=== PATIENT | female | born 1960 | race Caucasian/White ===

== ENCOUNTER 2024-12-25 08:15 | Emergency (ER) | payer SELFPAY ==
[~2024-12-25] VITALS: Ht 165.1 cm; Wt 56.5 kg
--- NOTE | 2024-12-25 08:35 | ED.PDOC ---
GI ASSESSMENT HPI Comments This is a 64 year old female presenting to the ED with chief complaint of nausea/vomiting. Patient reports that since 12am this morning, she started to experience nausea and vomiting with associated headache and palpitations. Patient relays that yesterday she had been swimming in the pool along with having some beers with water to keep herself hydrated throughout the day. Patient states she is not able to hold any fluids down. Patient denies any abdominal pain, chest pain, SOB, diarrhea, fever, or chills. Chief Complaint: Nausea/Vomiting Time Seen by MD: 08:34 Reviewed Notes: Nurses Notes, Medications, Allergies Allergies: Coded Allergies: NO KNOWN ALLERGIES (Unverified , 12/25/24) Home Meds Active Scripts Metronidazole (Flagyl) 500 Mg Tab, 1 TAB PO TID for 5 Days, #15 TAB Prov:OLEG HANEY MD 12/25/24 Ondansetron Odt 4MG Tab (ZOFRAN PO) 4 Mg Tb, 4 MG PO BS for 7 Days, #7 TAB ODT TAB-DISSOLVE IN MOUTH, THEN SWALLOW Prov:OLEG HANEY MD 12/25/24 Information Source: Patient, Spouse Mode of Arrival: Ambulatory Timing: Hours Duration: Since onset Prehospital treatment: None Quality: None Vomitus: Watery Stool: Normal Severity: Moderate Recent: None Recent Hx of: None Pain Location: None Modifying Factors: Nothing Associated sign and symptoms: Nausea, Vomiting Past Medical History PAST MEDICAL HISTORY: AFIB Surgical History: Denies all surgeries ACCOUNTS PAYABLE COORDINATOR History: No Pertinent ACCOUNTS PAYABLE COORDINATOR History Family History Family History: Reviewed,noncontributory to illness Social History Smoker: Non-Smoker Alcohol: Occasionally Drugs: Denies Drug Use Lives In: Home Constitutional: denies: chills, diaphoresis, fatigue, fever, malaise, sweats, weakness, others EENTM: denies: blurred vision, double vision, ear bleeding, ear discharge, ear drainage, ear pain, ear ringing, eye pain, eye redness, hearing loss, mouth pain, mouth swelling, nasal discharge, nose bleeding, nose congestion, nose pain, photophobia, tearing, throat pain, throat swelling, voice changes, others Respiratory: denies: cough, hemoptysis, orthopnea, SOB at rest, shortness of breath, SOB with excertion, stridor, wheezing, others Cardiovascular: reports: palpitations; denies: chest pain, dizzy spells, diaphoresis, Dyspnea on exertion, edema, irregular heart beat, left arm pain, lightheadedness, PND, syncope, others Gastrointestinal: reports: nausea, vomiting; denies: abdomen distended, abdominal pain, blood streaked bowels, constipated, diarrhea, dysphagia, difficu lty swallowing, hematemesis, melena, poor appetite, poor fluid intake, rectal bleeding, rectal pain, others Genitourinary: denies: abnormal vagina bleeding, burning, dyspareunia, dysuria, flank pain, frequency, hematuria, incontinence, pain, , vagina discharge, urgency, others Neurological: reports: headache; denies: dizziness, fainting, left sided numbness, left sided weakness, numbness, paresthesia, pre-existing deficit, right sided numbness, right sided weakness, seizure, speech problems, tingling, tremors, weakness, others Musculoskeletal: denies: back pain, gout, joint pain, joint swelling, muscle pain, muscle stiffness, neck pain, others Integumetry: denies: bruises, change in color, change in hair/nails, dryness, laceration, lesions, lumps, rash, wounds, others Allergic/Immunocompromised: denies: Difficulty Healing, Frequent Infections, Hives, Itching, others Hematologic/Lymphatic: denies: anemia, blood clots, easy bleeding, easy bruising, swollen glands, others Endocrine: denies: excessive hunger, excessive sweating, excessive thirst, excessive urination, flushing, intolerance to cold, intolerance to heat, unexplained weight gain, unexplained weight loss, others Psychiatric: denies: anxiety, bipolar disorder, depression, hopeless, panic disorder, schizophrenia, sleepless, suicidal, others All Other Systems: Reviewed and Negative Physical Exam General Appearance: Moderate Distress, Normal HEENT: Normal ENT Inspection, Pharynx Normal, TMs Normal Neck: Full Range of Motion, Non-Tender, Normal, Normal Inspection Respiratory: Chest Non-Tender, Lungs Clear, No Accessory Muscle Use, No Respiratory Distress, Normal Breath Sounds Cardiovascular: No Edema, No JVD, No Murmur, No Gallop, Normal Peripheral Pulses, Regular Rate/Rhythm Breast Exam: Deferred Gastrointestinal: No Organomegaly, Non Tender, No Pulsatile Mass, Normal Bowel Sounds, Soft Genitalia: Deferred Pelvic: Deferred Rectal: Deferred Extremities: No calf tenderness, Normal capillary refill, Normal inspection, Normal range of motion, Non-tender, No pedal edema Musculoskeletal : Apperance: Normal Neurologic: Alert, mobile equipment mechanic II-XII nml as Tested, No Motor Deficits, Normal Affect, Normal Mood, No Sensory Deficits Cerebellar Function: Normal Reflexes: Normal Skin: Dry, Normal Color, Warm Peripheral Pulses: 3+ Radial (R), 3+ Radial (L) Lymphatic: No Adenopathy EKG EKG : Pulse Rate (adult): 77 Hoagland: Normal Cardiac Rhythm: NSR Block: None Hypertrophy: None ST: Normal Was a procedure done? Was a procedure done?: No GI differential Dx Differential Diagnosis: Constipation, Diverticular disease, Esophagitis, Gastritis/PUD, Gastroenteritis X-Ray, Labs, Meds, VS Vital Signs Date Time Temp Pulse Resp B/P (MAP) Pulse Ox O2 Delivery O2 Flow Rate FiO2 12/25/24 08:55 84 14 98 Room Air* 0 21 12/25/24 08:48 98.7 62 17 125/59 (81) 98 98.7 12/25/24 08:48 62 17 98 Room Air 12/25/24 08:36 77 12/25/24 08:27 77 12/25/24 08:20 97.5 85 18 138/71 (93) 98 97.5 Lab Test 12/25/24 08:44 12/25/24 08:29 Range/Units White Blood Count 9.3 4.4-10.8 10^3/uL Red Blood Count 4.51 4.0-5.20 10^6/uL Hemoglobin 14.1 12.2-16.2 g/dL Hematocrit 41.6 36.0-46.0 % Mean Corpuscular Volume 92.3 80.0-100.0 fL Mean Corpuscular Hemoglobin 31.4 28.0-32.0 pg Mean Corpuscular Hemoglobin Concent 34.0 32.0-36.0 g/dL Red Cell Distribution Width 12.8 11.8-14.3 % Platelet Count 320 140-450 10^3/uL Mean Platelet Volume 7.3 6.9-10.8 fL Neutrophils (%) (Auto) 86.4 H 37.0-80.0 % Lymphocytes (%) (Auto) 10.5 10.0-50.0 % Monocytes (%) (Auto) 2.6 0.0-12.0 % Eosinophils (%) (Auto) 0.1 0.0-7.0 % Basophils (%) (Auto) 0.4 0.0-2.0 % Neutrophils # (Auto) 8.1 1.6-8.6 10 ^3/uL Lymphocytes # (Auto) 1.0 0.4-5.4 10 ^3/uL Monocytes # (Auto) 0.2 0-1.3 10 ^3/uL Eosinophils # (Auto) 0 0-0.8 10 ^3/uL Basophils # (Auto) 0 0-0.2 10 ^3/uL Nucleated Red Blood Cells 0.0 % Sodium Level 128 L 136-145 mmol/L Potassium Level 3.8 3.5-5.1 mmol/L Chloride Level 93 L 98-107 mmol/L Carbon Dioxide Level 26 20-31 mmol/L Anion Gap 9 5-15 Blood Urea Nitrogen 6 L 9-23 mg/dL Creatinine 0.60 0.550-1.02 mg/dL Glomerular Filtration Rate Calc 100 >90 mL/min BUN/Creatinine Ratio 10.0 10.0-20.0 Serum Glucose 108 H 74-106 mg/dL Calcium Level 9.8 8.7-10.4 mg/dL Urine Color Yellow Yellow Urine Clarity Clear Clear Urine pH 6.0 5.0-9.0 Urine Specific [place] 1.018 1.001-1.035 Urine Protein Negative Negative Urine Ketones 3+ H Negative Urine Blood Negative Negative /uL Urine Nitrite Negative Negative Urine Bilirubin Negative Negative Urine Urobilinogen Normal Negative mg/dL Urine Leukocyte Esterase Negative Negative /uL Urine RBC 2 0 - 4 /hpf Urine Microscopic WBC 1 0-5 /HPF Urine Squamous Epithelial Cells None seen <5 /hpf Urine Bacteria None seen None Seen /hpf Urine Mucus Few None Seen Urine Glucose Normal Normal mg/dL Current Medications Medications (Trade) Dose Ordered Sig/Angelita Route Start Time Stop Time Status Last Admin Sodium Chloride 1,000 ml @ 1,000 mls/hr Q1H ONCE IV 12/25/24 08:45 12/25/24 09:44 12/25/24 08:52 Patient alert. Complaining of nausea vomiting. Vitals stable. Answering questions. Abdomen is soft nontender. Establish intravenous access. Was given fluids. Was given Zofran. WBC within normal limits. Possible dehydration. Was given prescription of Flagyl. Explained to the patient. Continue to monitor. Was told to follow up with her primary care physician. Was told to come back if there is any problem. Time of 1ST Reevaluation: 09:33 Reevaluation 1ST: Improved Patient Education/Counseling: Diagnosis, Treatment Family Education/Counseling: Diagnosis, Treatment Additional Information Previous visits reviewed: None The following tests were ordered, and results were reviewed by me: CBC, BMP, UA Additional Information was gathered from interviewing the following independent historians: I reviewed and agreed with the following test results read by other providers: None I discussed treatment and results with medical personnel and: patient and Comprehensive systems review obtained and negative except for what is stated in the HPI. SEPSIS Sepsis Screen Physician Orders Electrocardigram (12/25/24 08:31) Sodium Chloride 0.9% (12/25/24 08:45) Saline Lock (12/25/24 08:39) Vital Signs Date Time Temp Pulse Resp B/P (MAP) Pulse Ox O2 Delivery O2 Flow Rate FiO2 12/25/24 08:55 84 14 98 Room Air* 0 21 12/25/24 08:48 98.7 62 17 125/59 (81) 98 98.7 12/25/24 08:48 62 17 98 Room Air 12/25/24 08:36 77 12/25/24 08:27 77 12/25/24 08:20 97.5 85 18 138/71 (93) 98 97.5 Laboratory Tests Test 12/25/24 08:44 White Blood Count 9.3 10^3/uL (4.4-10.8) Medications Medications Dose Ordered Sig/Angelita Route Start Time Stop Time Status Last Admin Dose Admin Sodium Chloride 1,000 ml @ 1,000 mls/hr Q1H ONCE IV 12/25/24 08:45 12/25/24 09:44 12/25/24 08:52 Departure 1 Departure Time of Disposition: 08:38 Impression: Primary Impression: Gastroenteritis Disposition: 01 HOME / SELF CARE / HOMELESS Condition: Good e-Prescriptions Metronidazole (Flagyl) 500 Mg Tab 1 TAB PO TID for 5 Days, #15 TAB Prov: OLEG HANEY MD 12/25/24 Ondansetron Odt 4MG Tab (ZOFRAN PO) 4 Mg Tb 4 MG PO BS for 7 Days, #7 TAB ODT TAB-DISSOLVE IN MOUTH, THEN SWALLOW Prov: OLEG HANEY MD 12/25/24 Discharged With: Self Critical Care Note Critical Care Time?: No Stability Stability form required: No Heart Score Heart Score: Heart Score Response (Comments) Value History N/A 0 EKG N/A 0 Age N/A 0 Risk Factors N/A 0 Troponin N/A 0 Total 0 I personally scribed for OLEG HANEY MD ([email or web address]) on 12/25/24 at 08:35. Electronically submitted by Jhoan Augustine ([email or web address]). I personally scribed for OLEG HANEY MD ([email or web address]) on 12/25/24 at 08:36. Electronically submitted by Jhoan Augustine ([email or web address]). OLEG HANEY MD Dec 25, 2024 08:35
[2024-12-25] MEDS: SODIUM CHLORIDE 0.9% 1,000 ML IV ONE (08:52)
[2024-12-25 08:55] VITALS: PULSE 84; RESP 14; O2SAT 98
[2024-12-25 08:59] LABS: Urine Protein, UAD Negative (Negative)
[2024-12-25 09:14] LABS: Hematocrit 41.6 % (36.0-46.0); Hemoglobin 14.1 g/dL (12.2-16.2); Mean Corpuscular Hemoglobin 31.4 pg (28.0-32.0); Mean Corpuscular Volume 92.3 fL (80.0-100.0); Nucleated Red Blood Cells % 0.0 %
[2024-12-25 09:18] LABS: Potassium 3.8 mmol/L (3.5-5.1)
[2024-12-25 09:19] LABS: Anion Gap 9 (5-15); Calcium 9.8 mg/dL (8.7-10.4); Carbon Dioxide 26 mmol/L (20-31); Chloride 93 mmol/L (98-107); Sodium 128 mmol/L (136-145)
[2024-12-25 09:24] LABS: BUN/Creatinine Ratio 10.0 (10.0-20.0)
[2024-12-25 09:26] LABS: Blood Urea Nitrogen 6 mg/dL (9-23); Glucose 108 mg/dL (74-106)
[2024-12-25] MEDS ORDERED: METR-344 PO (09:43)
[2024-12-25] MEDS ORDERED: ZOFR4T PO (09:43)
[2024-12-25 10:13] VITALS: BP 116/50; PULSE 82; RESP 16; TEMP 98.9; O2SAT 98
--- NOTE | 2024-12-25 19:09 | ECG ---
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
== END 2024-12-25 10:15 | disposition home or self-care (01) ==
LOC: ER 08:15
DX: K52.9 Noninfective gastroenteritis and colitis, unspecified (principal); I48.91 Unspecified atrial fibrillation; Z79.899 Other long term (current) drug therapy
CPT/HCPCS: 36415; 80048; 81001; 85025; 93005

== ENCOUNTER 2025-01-21 22:02 | Inpatient (IN) | payer SELFPAY ==
[~2025-01-21] VITALS: Ht 162.6 cm; Wt 54.0 kg
[~2025-01-21 22:02] MED LIST: METR-344 PO; ZOFR4T PO
[2025-01-21 23:33] LABS: Hematocrit 41.6 % (36.0-46.0); Hemoglobin 14.3 g/dL (12.2-16.2); Mean Corpuscular Hemoglobin 32.0 pg (28.0-32.0); Mean Corpuscular Volume 93.3 fL (80.0-100.0); Nucleated Red Blood Cells % 0.0 %
[2025-01-21 23:40] LABS: Alanine Aminotransferase 36 U/L (7-40); Albumin 4.4 g/dL (3.2-4.8); Alkaline Phosphatase 56 U/L (46-116); Anion Gap 12 (5-15); Bilirubin, Total 0.4 mg/dL (0.2-1.0); Calcium 8.9 mg/dL (8.7-10.4); Carbon Dioxide 23 mmol/L (20-31); Glucose 104 mg/dL (74-106); Total Protein 6.7 g/dL (5.7-8.2)
[2025-01-21 23:42] LABS: BUN/Creatinine Ratio 7.5 (10.0-20.0); Blood Urea Nitrogen < 5 mg/dL (9-23); Chloride 94 mmol/L (98-107); Lipase 64 U/L (12-53); Potassium 3.4 mmol/L (3.5-5.1); Sodium 129 mmol/L (136-145)
--- NOTE | 2025-01-22 00:01 | ED.PDOC ---
GI ASSESSMENT HPI Comments HPI: 64 year old female presents to the emergency department with a chief complaint of nausea/vomiting onset 1 day. She was seen in this ED on 12/25/2024, for similar symptoms, was diagnosed with Gastroenteritis, was prescribed Flagyl and Zofran. Patient noticed symptoms resolved, for the past day began experiencing symptoms. Describes vomit as a light brown color, is also experiencing weakness. Denies any chest pain,shortness of breath, dizziness, diarrhea, constipation, fever, chills, dysuria, hematuria, hematemesis. No other symptoms or modifying factors present at this time. Initial Vitals BP: 122/89 HR: 76 RR: 20 O2: 97% Temp: 97.8 F Past Medical History: Denies Past Surgical History:Denies Social History: Denies ETOH, smoking, and drug use. Medications: Denies Allergies: NKDA HPI: Poor Historian. REVIEW OF SYSTEMS: CONSTITUTIONAL: Denies acute: fever, diaphoresis, chills, HEAD: Denies acute: headache, photophobia Eyes: Denies acute: Double vision, vision loss, eye pain, eye discharge. EARS: Denies acute: tinnitus, hearing loss, ear discharge, ear pain, THROAT: Denies acute: sore throat, swelling, difficulty swallowing , pain with swallowing, change in voice. NECK: Denies acute: neck pain, neck swelling, stiff neck. HEART: Denies acute : chest pain, palpitations, LUNGS: Denies acute: SOB, wheezing, cough, hemoptysis ABDOMEN: Denies acute: abdominal pain, diarrhea, melena , hematemesis, hematochezia SKIN: Denies acute: rash, redness, lesions, itchiness. EXTREMITIES: Denies acute: calf pain, numbness, tingling, weakness, denies pain in extremity. Denies acute: Low back pain. Neuro: Denies acute: focal neurological deficit, motor or sensory focal neurological deficit, tremors, seizure like activity, confusion, dizziness, change in mental status, loss of bowel or bladder function, cauda equina like symptoms. : Denies acute: dysuria, hematuria, flank pain, increase in urinary frequency. PSYCH: Denies acute: hallucination, suicidal ideation, homicidal ideation. FEMALE: Denies acute: abnormal vaginal bleeding, foul odor, unusual discharge. PHYSICAL EXAM: General: ---mild-----acute distress, awake and alert. Head: normocephalic, atraumatic. Neck: supple, trachea is midline, no swelling. Throat: Normal phonation. Eyes:, no erythema, no purulent discharge, no proptosis, no icterus. Heart: regular rate, regular rhythm, no significant murmur appreciated. Lungs: no apparent respiratory distress, Able to speak in full sentences. No wheezing, no rhonchi, no crackles. No stridors Clear to auscultation bilaterally. Abdomen: non tender to palpation, non distended, soft, no guarding, no rebound, + bowel sounds. Neuro: Awake, Alert, oriented to name, self, situation, follows commands GCS=15. Speech is normal. Skin: no petechia, no purpura, no cyanosis, non-pale, not jaundice. Lower extremities: --no - Pitting edema no deformity, no focal swelling, no calf TTP. Makes eye contact. moves all four extremities. Face: no apparent facial droop. Ambulating in the ED independently. ED COURSE: DISCLAIMER: This medical document was created using an electronic medical record system with voice recognition software and computerized dictation system. Although this document has been carefully reviewed, there might still be some phonetic and typographical errors. Occasional wrong-word or "sound-alike" substitutions may have occurred due to the inherent limitations of voice recognition software. These areas are purely typographical due to imperfections of the software programs and do not reflect any compromise in the patient's medical care. Please read the chart carefully and recognize, using context, where these substitutions have occurred. Chief Complaint: Nausea/Vomiting Time Seen by MD: 23:50 Primary Care Provider: ? Reviewed Notes: Medications, Allergies Allergies: Coded Allergies: NO KNOWN ALLERGIES (Unverified , 12/25/24) Home Meds Active Scripts Metronidazole (Flagyl) 500 Mg Tab, 1 TAB PO TID for 5 Days, #15 TAB Prov:OLEG HANEY MD 12/25/24 Ondansetron Odt 4MG Tab (ZOFRAN PO) 4 Mg Tb, 4 MG PO BS for 7 Days, #7 TAB ODT TAB-DISSOLVE IN MOUTH, THEN SWALLOW Prov:OLEG HANEY MD 12/25/24 Information Source: Patient Mode of Arrival: Ambulatory Timing: Days Duration: Since onset Prehospital treatment: None Quality: None Vomitus: Other (light brown) Severity: Moderate Recent: None Recent Hx of: None Modifying Factors: Nothing Associated sign and symptoms: Nausea, Vomiting Past Medical History PAST MEDICAL HISTORY: Denies Surgical History: Denies all surgeries COSMETICS COUNTER MANAGER History: No Pertinent COSMETICS COUNTER MANAGER History Family History Family History: Reviewed,noncontributory to illness Social History Smoker: Non-Smoker Alcohol: Occasionally Drugs: Denies Drug Use Lives In: Home Was a procedure done? Was a procedure done?: No X-Ray, Labs, Meds, VS Vital Signs Date Time Temp Pulse Resp B/P (MAP) Pulse Ox O2 Delivery O2 Flow Rate FiO2 01/21/25 22:12 74 01/21/25 22:03 97.8 76 20 122/89 97 97.8 Lab Test 01/21/25 23:45 01/21/25 22:53 01/21/25 22:15 Range/Units Troponin I High Sensitivity < 3 L < 3 L </=34 ng/L White Blood Count 15.4 H 4.4-10.8 10^3/uL Red Blood Count 4.46 4.0-5.20 10^6/uL Hemoglobin 14.3 12.2-16.2 g/dL Hematocrit 41.6 36.0-46.0 % Mean Corpuscular Volume 93.3 80.0-100.0 fL Mean Corpuscular Hemoglobin 32.0 28.0-32.0 pg Mean Corpuscular Hemoglobin Concent 34.3 32.0-36.0 g/dL Red Cell Distribution Width 12.4 11.8-14.3 % Platelet Count 263 140-450 10^3/uL Mean Platelet Volume 7.3 6.9-10.8 fL Neutrophils (%) (Auto) 83.1 H 37.0-80.0 % Lymphocytes (%) (Auto) 12.8 10.0-50.0 % Monocytes (%) (Auto) 3.6 0.0-12.0 % Eosinophils (%) (Auto) 0.3 0.0-7.0 % Basophils (%) (Auto) 0.2 0.0-2.0 % Neutrophils # (Auto) 12.8 H 1.6-8.6 10 ^3/uL Lymphocytes # (Auto) 2.0 0.4-5.4 10 ^3/uL Monocytes # (Auto) 0.6 0-1.3 10 ^3/uL Eosinophils # (Auto) 0 0-0.8 10 ^3/uL Basophils # (Auto) 0 0-0.2 10 ^3/uL Nucleated Red Blood Cells 0.0 % Sodium Level 129 L 136-145 mmol/L Potassium Level 3.4 L 3.5-5.1 mmol/L Chloride Level 94 L 98-107 mmol/L Carbon Dioxide Level 23 20-31 mmol/L Anion Gap 12 5-15 Blood Urea Nitrogen < 5 L 9-23 mg/dL Creatinine 0.67 0.550-1.02 mg/dL Glomerular Filtration Rate Calc 98 >90 mL/min BUN/Creatinine Ratio 7.5 L 10.0-20.0 Serum Glucose 104 74-106 mg/dL Lactic Acid Level 1.6 0.4-2.0 mmol/L Calcium Level 8.9 8.7-10.4 mg/dL Total Bilirubin 0.4 0.2-1.0 mg/dL Aspartate Amino Transferase (AST) 35 13-40 U/L Alanine Aminotransferase (ALT) 36 7-40 U/L Alkaline Phosphatase 56 46-116 U/L Total Protein 6.7 5.7-8.2 g/dL Albumin 4.4 3.2-4.8 g/dL Lipase 64 H 12-53 U/L POC Glucose 113 H 70-106 mg/dl Current Medications Medications (Trade) Dose Ordered Sig/Angelita Route Start Time Stop Time Status Last Admin Sodium Chloride 1,000 ml @ 1,000 mls/hr Q1H ONCE IV 01/22/25 00:00 01/22/25 00:59 01/22/25 00:43 Ondansetron HCl (Zofran) 8 mg ONCE ONCE IV 01/22/25 00:00 01/22/25 00:01 DC 01/22/25 00:[address] [address] Ph: [phone] DIAGNOSTIC IMAGING Diagnostic Imaging Report : [id number] Signed PATIENT: BEBETO RDZ ACCT: [id number] UNIT: [id number] : 1960 LOC: ER ROOM / BED: / AGE / SEX: 64 / F ADM STATUS: REG ER SERVICE 21 ORDERING PHYSICIAN: MONICA OTOOLE DO PROCEDURE(s): ABPLIV - CT AB PEL WITH IV CON ONLY REASON: abd pain n/v ORDER NUMBER(s): [id number], ACCESSION NUMBER(s): [id number] Exam: CT CT AB PEL WITH IV CON ONLY History: abd pain n/v Comparison Study: None TECHNIQUE: A digital public relations intern image was obtained. During the uneventful, intravenous administration of contrast material, multislice data acquisition was obtained through the abdomen and pelvis. The data set was subsequently reconstructed into multiplanar reformats. RADIATION DOSE: CTDI vol 7.81 mGy. DLP 419.68 mGy.cm Findings: Liver: Unremarkable. Spleen: Unremarkable. Pancreas: Unremarkable. Gallbladder: Unremarkable. Adrenals: Unremarkable Kidneys: Unremarkable. Pelvic Viscera: Unremarkable. Vasculature: Unremarkable. Retroperitoneum: Unremarkable. Bowel: No bowel obstruction. Fluid-filled small bowel with regions of small bowel wall thickening. No CT evidence of appendicitis. Musculoskeletal: Unremarkable. Soft tissues: Unremarkable Lungs: The lung bases are clear. Impression: 1. Findings as above raising the possibility of an enteritis in the appropriate clinical setting. ATED BY: KAMLESH CHEN MD DICTATED DATE/TIME: 01/22/25 0004 SIGNED BY: KAMLESH CHEN MD SIGNED DATE/TIME: 01/22/25 0004 CC: Time of 1ST Reevaluation: 00:20 Reevaluation 1ST: Unchanged Patient Education/Counseling: Diagnosis, Treatment Family Education/Counseling: No Family Present Departure 1 Departure Impression: Primary Impression: Enteritis Additional Impressions: Leukocytosis Qualified Codes: D72.829 - Elevated white blood cell count, unspecified Nausea & vomiting Qualified Codes: R11.2 - Nausea with vomiting, unspecified Hyponatremia Disposition: ADMITTED INPATIENT Admit to: [facility] Condition: Guarded Additional Instructions: [place] [address] Ph: [phone] DIAGNOSTIC IMAGING Diagnostic Imaging Report : [id number] Signed PATIENT: BEBETO RDZ ACCT: [id number] UNIT: [id number] : 1960 LOC: ER ROOM / BED: / AGE / SEX: 64 / F ADM STATUS: REG ER SERVICE 21 ORDERING PHYSICIAN: MONICA OTOOLE DO PROCEDURE(s): ABPLIV - CT AB PEL WITH IV CON ONLY REASON: abd pain n/v ORDER NUMBER(s): [id number], ACCESSION NUMBER(s): [id number] Exam: CT CT AB PEL WITH IV CON ONLY History: abd pain n/v Comparison Study: None TECHNIQUE: A digital public relations intern image was obtained. During the uneventful, intravenous administration of contrast material, multislice data acquisition was obtained through the abdomen and pelvis. The data set was subsequently reconstructed into multiplanar reformats. RADIATION DOSE: CTDI vol 7.81 mGy. DLP 419.68 mGy.cm Findings: Liver: Unremarkable. Spleen: Unremarkable. Pancreas: Unremarkable. Gallbladder: Unremarkable. Adrenals: Unremarkable Kidneys: Unremarkable. Pelvic Viscera: Unremarkable. Vasculature: Unremarkable. Retroperitoneum: Unremarkable. Bowel: No bowel obstruction. Fluid-filled small bowel with regions of small bowel wall thickening. No CT evidence of appendicitis. Musculoskeletal: Unremarkable. Soft tissues: Unremarkable Lungs: The lung bases are clear. Impression: 1. Findings as above raising the possibility of an enteritis in the appropriate clinical setting. ATED BY: KAMLESH CHEN MD DICTATED DATE/TIME: 01/22/25 0004 SIGNED BY: KAMLESH CHEN MD SIGNED DATE/TIME: 01/22/25 0004 CC: Discharged With: Self Critical Care Note Critical Care Time?: No I personally scribed for MONICA OTOOLE DO ([email or web address]) on 01/22/25 at 00:01. E lectronically submitted by Sugey Reddy ([email or web address]). I personally scribed for MONICA OTOOLE DO ([email or web address]) on 01/22/25 at 00:19. Electr onically submitted by Sugey Reddy ([email or web address]). I personally scribed for MONICA OTOOLE DO ([email or web address]) on 01/22/25 at 00:50. Electronically submitted by Sugey Reddy ([email or web address]). MONICA OTOOLE DO Jan 22, 2025 00:01
--- NOTE | 2025-01-22 00:07 | DVH ---
Exam: CT CT AB PEL WITH IV CON ONLY History: abd pain n/v Comparison Study: None TECHNIQUE: A digital wet cleaner machine image was obtained. During the uneventful, intravenous administration of c ontrast material, multislice data acquisition was obtained through the abdomen and pelvis. The data s et was subsequently reconstructed into multiplanar reformats. RADIATION DOSE: CTDI vol 7.81 mGy. DLP 419.68 mGy.cm Findings: Liver: Unremarkable. Spleen: Unremarkable. Pancreas: Unremarkable. Gallbladder: Unremarkable. Adrenals: Unremarkable Kidneys: Unremarkable. Pelvic Viscera: Unremarkable. Vasculature: Unremarkable. Retroperitoneum: Unremarkable. Bowel: No bowel obstruction. Fluid-filled small bowel with regions of small bowel wall thickening. No CT evidence of appendicitis. Musculoskeletal: Unremarkable. Soft tissues: Unremarkable Lungs: The lung bases are clear. Impression: 1. Findings as above raising the possibility of an enteritis in the appropriate clinical setting.
[2025-01-22] MEDS: IOHEXOL 300 MG/ML 100ML BOTTLE IJ ONE (00:32)
[2025-01-22] MEDS: SODIUM CHLORIDE 0.9% 1,000 ML IV ONE (00:43)
[2025-01-22] MEDS: ONDANSETRON HCL 4 MG/2 ML VIAL IV ONE (00:44)
[2025-01-22] MEDS ORDERED: ONDANSETRON HCL 4 MG/2 ML VIAL IV PRN (01:15)
[2025-01-22] MEDS ORDERED: HYDROcodone-ACET 5/325MG TAB PO PRN (01:15)
[2025-01-22] MEDS ORDERED: MORPHINE SULFATE INJ 2 MG/ml SYRG IV PRN (01:15)
[2025-01-22] MEDS ORDERED: ACETAMINOPHEN 325 MG TAB PO PRN (01:15)
[2025-01-22] MEDS: SODIUM CHLORIDE 0.9% 500 ML IV ONE (03:04)
--- NOTE | 2025-01-22 03:08 | DVHHP2 ---
History of Present Illness Reason for Visit: Nausea and vomiting History of Present Illness 64-year-old female presents for evaluation of nausea and vomiting. Patient reports a one day history of abdominal cramping with associated nausea and vomiting. She reports a history of gastroenteritis in the past. She states the symptoms feel similar. Denies diarrhea. No fever or chills. Past Medical History Denies Past Surgical History Denies Family History Noncontributory Smoke: No ALCOHOL: none Drugs: None Lives: with Family Review of Systems Review of Systems Review of systems are currently negative otherwise addressed in HPI. Allergies: Coded Allergies: NO KNOWN ALLERGIES (Unverified , 12/25/24) Medications Current Medications Medications Dose Ordered Sig/Angelita Route Start Time Stop Time Status Last Admin Dose Admin Metronidazole 100 ml @ 100 mls/hr Q8HR IV 01/22/25 14:00 Pantoprazole Sodium 40 mg DAILY IV 01/22/25 10:00 Acetaminophen/ Hydrocodone Bitart 1 tab Q4HP PRN PO 01/22/25 01:15 Ondansetron HCl 4 mg Q4HP PRN IV 01/22/25 01:15 Acetaminophen 650 mg Q6HP PRN PO 01/22/25 01:15 Morphine Sulfate 2 mg Q6HPRN PRN IV 01/22/25 01:15 Exam Vital Signs Vital Signs Date Time Temp Pulse Resp B/P (MAP) Pulse Ox O2 Delivery O2 Flow Rate FiO2 01/22/25 01:16 98.6 89 16 125/48 (73) 98 98.6 Exam Gen: 64-year-old female in mild distress Skin: Warm, dry, normal color and texture, no rash. HEENT: Normocephalic atraumatic, mucous membranes moist and pink. Neck: Cervical and supraclavicular nodes normal without enlargement, trachea is midline, thyroid gland is normal without masses. Pulmonary: Clear to auscultation and percussion bilaterally. Cardiac: Regular rate and rhythm. No murmur Abdomen: Soft, nontender, nondistended, bowel sounds present all 4 quadrants, no guarding, no rigidity, no organomegaly. Extremities: No cyanosis, clubbing, no edema Neuro: Cranial nerves II through XII grossly intact, normal affect and speech, no focal motor deficits. Labs/Xrays ORDERING PHYSICIAN: MONICA OTOOLE DO PROCEDURE(s): ABPLIV - CT AB PEL WITH IV CON ONLY REASON: abd pain n/v ORDER NUMBER(s): [id number], ACCESSION NUMBER(s): [id number] Exam: CT CT AB PEL WITH IV CON ONLY History: abd pain n/v Comparison Study: None TECHNIQUE: A digital battery charger tester image was obtained. During the uneventful, intravenous administration of contrast material, multislice data acquisition was obtained through the abdomen and pelvis. The data set was subsequently reconstructed into multiplanar reformats. RADIATION DOSE: CTDI vol 7.81 mGy. DLP 419.68 mGy.cm Findings: Liver: Unremarkable. Spleen: Unremarkable. Pancreas: Unremarkable. Gallbladder: Unremarkable. Adrenals: Unremarkable Kidneys: Unremarkable. Pelvic Viscera: Unremarkable. Vasculature: Unremarkable. Retroperitoneum: Unremarkable. Bowel: No bowel obstruction. Fluid-filled small bowel with regions of small bowel wall thickening. No CT evidence of appendicitis. Musculoskeletal: Unremarkable. Soft tissues: Unremarkable Lungs: The lung bases are clear. Impression: 1. Findings as above raising the possibility of an enteritis in the appropriate clinical setting. Labs Test 01/22/25 01:34 01/21/25 22:53 01/21/25 22:15 Range/Units Troponin I High Sensitivity < 3 L </=34 ng/L White Blood Count 15.4 H 4.4-10.8 10^3/uL Red Blood Count 4.46 4.0-5.20 10^6/uL Hemoglobin 14.3 12.2-16.2 g/dL Hematocrit 41.6 36.0-46.0 % Mean Corpuscular Volume 93.3 80.0-100.0 fL Mean Corpuscular Hemoglobin 32.0 28.0-32.0 pg Mean Corpuscular Hemoglobin Concent 34.3 32.0-36.0 g/dL Red Cell Distribution Width 12.4 11.8-14.3 % Platelet Count 263 140-450 10^3/uL Mean Platelet Volume 7.3 6.9-10.8 fL Neutrophils (%) (Auto) 83.1 H 37.0-80.0 % Lymphocytes (%) (Auto) 12.8 10.0-50.0 % Monocytes (%) (Auto) 3.6 0.0-12.0 % Eosinophils (%) (Auto) 0.3 0.0-7.0 % Basophils (%) (Auto) 0.2 0.0-2.0 % Neutrophils # (Auto) 12.8 H 1.6-8.6 10 ^3/uL Lymphocytes # (Auto) 2.0 0.4-5.4 10 ^3/uL Monocytes # (Auto) 0.6 0-1.3 10 ^3/uL Eosinophils # (Auto) 0 0-0.8 10 ^3/uL Basophils # (Auto) 0 0-0.2 10 ^3/uL Nucleated Red Blood Cells 0.0 % Sodium Level 129 L 136-145 mmol/L Potassium Level 3.4 L 3.5-5.1 mmol/L Chloride Level 94 L 98-107 mmol/L Carbon Dioxide Level 23 20-31 mmol/L Anion Gap 12 5-15 Blood Urea Nitrogen < 5 L 9-23 mg/dL Creatinine 0.67 0.550-1.02 mg/dL Glomerular Filtration Rate Calc 98 >90 mL/min BUN/Creatinine Ratio 7.5 L 10.0-20.0 Serum Glucose 104 74-106 mg/dL Lactic Acid Level 1.6 0.4-2.0 mmol/L Calcium Level 8.9 8.7-10.4 mg/dL Total Bilirubin 0.4 0.2-1.0 mg/dL Aspartate Amino Transferase (AST) 35 13-40 U/L Alanine Aminotransferase (ALT) 36 7-40 U/L Alkaline Phosphatase 56 46-116 U/L Total Protein 6.7 5.7-8.2 g/dL Albumin 4.4 3.2-4.8 g/dL Lipase 64 H 12-53 U/L POC Glucose 113 H 70-106 mg/dl SEPSIS Sepsis Screen Date sepsis recognized/suspect: Jan 21, 2025 Time Sepsis recognized/suspect: 2202 Recent Procedure: No On Antibiotic Therapy: No Respiratory Rate >20: No Heart Rate >90: No Temp<36 C (96.8 F) or >38.3 C: No SBP <90 or MAP <65 mmHG: No New Acute Mental Status Change: No Is the patient on CPAP, BIPAP,: No Physician Orders Electrocardigram (01/21/25 22:20) Shorts Sifter (01/21/25 ) Urinalysis (01/21/25 22:22) Ct Ab Pel With Iv Con Only (01/21/25 22:22) Metronidazole 500mg/100ml (Flagyl 500mg/ (01/22/25 14:00) * [facility] (01/22/25 01:12) Pantoprazole (Protonix) (01/22/25 10:00) Basic Metabolic Panel (01/23/25 04:00) Admit (01/22/25 01:12) Hydrocodone-Acet 5/325mg Tab (Lyman 5/32 (01/22/25 01:15) Ondansetron Hcl (Zofran) (01/22/25 01:15) Complete Blood Count (01/23/25 04:00) Condition: Stable (01/22/25 01:12) Acetaminophen Tablet (Tylenol Tablet) (01/22/25 01:15) Clear Liq Diet (01/22/25 Breakfast) Bedrest With Bathroom Privileg (01/22/25 01:12) Morphine Sulfate Injection (01/22/25 01:15) Vital Signs Date Time Temp Pulse Resp B/P (MAP) Pulse Ox O2 Delivery O2 Flow Rate FiO2 01/22/25 01:16 98.6 89 16 125/48 (73) 98 98.6 01/21/25 22:12 74 01/21/25 22:03 97.8 76 20 122/89 97 97.8 Laboratory Tests Test 01/21/25 22:53 Lactic Acid Level 1.6 mmol/L (0.4-2.0) White Blood Count 15.4 10^3/uL (4.4-10.8) H Medications Medications Dose Ordered Sig/Angelita Route Start Time Stop Time Status Last Admin Dose Admin Ondansetron HCl 8 mg ONCE ONCE IV 01/22/25 00:00 01/22/25 00:01 DC 01/22/25 00:44 8 MG Sodium Chloride 1,000 ml @ 1,000 mls/hr Q1H ONCE IV 01/22/25 00:00 01/22/25 00:59 DC 01/22/25 00:43 1,000 MLS/HR Assessment/Plan Assessment/Plan Assessment Acute gastroenteritis Hypokalemia Leukocytosis Plan Admit the patient to [facility] to the hospitalist Flagyl IV Clear liquid diet Pain management GI consult Continue treatment per orders. Plan discussed with: Patient My Orders Orders - NILES JOE Procedure Category Date Status Time Metronidazole PHA 01/22/25 In Process 500mg/100ml (Flagyl 14:00 * [facility] CONS 01/22/25 Transmitted 01:12 Pantoprazole PHA 01/22/25 In Process (Protonix) 10:00 Basic Metabolic Panel LAB 01/23/25 Verified 04:00 Admit ADMIT 01/22/25 Transmitted 01:12 Hydrocodone-Acet PHA 01/22/25 In Process 5/325mg Tab (Lyman 01:15 Ondansetron Hcl PHA 01/22/25 In Process (Zofran) 01:15 Complete Blood Count LAB 01/23/25 Verified 04:00 Condition: Stable DANA 01/22/25 In Process 01:12 Acetaminophen Tablet PHA 01/22/25 In Process (Tylenol Tablet) 01:15 Clear Liq Diet DIET 01/22/25 Transmitted Breakfast Bedrest With Bathroom DANA 01/22/25 In Process Privileg 01:12 Morphine Sulfate PHA 01/22/25 In Process Injection 01:15 Date of Service: Jan 22, 2025 Billing Provider: NILES JEO Common Visit Codes: [id number] INP/OBS CARE (MOD) NILES JOE Jan 22, 2025 03:08
[2025-01-22] MEDS: METOCLOPRAMIDE HCL 5MG/ml INJ 2ml VIAL IV ONE (04:10)
[2025-01-22] MEDS: CIPROFLOXACIN 400MG/200ML 200 ML IV ONE (04:10)
[2025-01-22] MEDS: POTASSIUM CHL 20 Meq TABLET PO ONE (04:51)
[2025-01-22 04:52] LABS: Urine Protein, UAD Negative (Negative)
[2025-01-22 05:00] VITALS: PULSE 90; RESP 14; O2SAT 96
[2025-01-22] MEDS: diphenhdrAMINE HCL 50 MG/1 ML VL ONE (05:22)
[2025-01-22] MEDS: diphenhdrAMINE HCL 50 MG/1 ML VL IV ONE (05:23)
[2025-01-22 07:30] VITALS: PULSE 83; RESP 12; O2SAT 97
--- NOTE | 2025-01-22 09:11 | ECG ---
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
[2025-01-22] MEDS: PANTOPRAZOLE 40 MG/10 ML VIAL INJ IV SCH (10:57)
--- NOTE | 2025-01-22 13:40 | DVHINCON2 ---
GI Consult Consult Note GI consult note Date of Consultation: 01/22/2025 Chief Complaint: Gastroenteritis Referring Physician: Rufus BURDICK H&P: 64-year-old female is seen in the ER bed 24 for evaluation of nausea and vomiting. Patient complains of mild upper and periumbilical pain. Patient has nausea and vomiting, mostly water. That she has been drinking that she is throwing up. Patient has fatigue and decreased appetite for the past many weeks, in admits to having lot of family stress. Patient was admitted to the hospital with similar symptoms about five weeks, completed course of antibiotics. Last bowel movement 1 hour. Denies melena or red blood in stool. Patient is starting to feel better and prefers to follow-up with us on an outpatient basis Past Medical History: Denies Past Surgical History: Denies Social History: NO smoking, drinking ETOH and use of illegal drugs. Family History: Noncontributory Review of Systems: Constitutional: no fever, chill, weight loss HEENT: no eye pain, no hearing loss, no oral lesion, no scleral icterus Heart: no chest pain, no chest pressure Lung: no cough, no dyspnea with exertion Abdomen: see HPI Physical exam: General: NAD, AAOX3 Chest: lung irizarry clear to auscultation Heart: RRR, no murmur Abdomen: non-distended, no tenderness to palpation, +BS Labs: Labs Test 01/22/25 02:23 01/22/25 01:34 01/21/25 22:53 01/21/25 22:15 Range/Units Urine Color Light-yellow Yellow Urine Clarity Turbid H Clear Urine pH 6.0 5.0-9.0 Urine Specific [place] 1.022 1.001-1.035 Urine Protein Negative Negative Urine Ketones 1+ H Negative Urine Blood Negative Negative /uL Urine Nitrite Negative Negative Urine Bilirubin Negative Negative Urine Urobilinogen Normal Negative mg/dL Urine Leukocyte Esterase Negative Negative /uL Urine RBC None seen 0 - 4 /hpf Urine Microscopic WBC 1 0-5 /HPF Urine Squamous Epithelial Cells None seen <5 /hpf Urine Calcium Oxalate Crystals Many None Seen Urine Bacteria None seen None Seen /hpf Urine Mucus Few None Seen Urine Glucose Normal Normal mg/dL Troponin I High Sensitivity < 3 L </=34 ng/L White Blood Count 15.4 H 4.4-10.8 10^3/uL Red Blood Count 4.46 4.0-5.20 10^6/uL Hemoglobin 14.3 12.2-16.2 g/dL Hematocrit 41.6 36.0-46.0 % Mean Corpuscular Volume 93.3 80.0-100.0 fL Mean Corpuscular Hemoglobin 32.0 28.0-32.0 pg Mean Corpuscular Hemoglobin Concent 34.3 32.0-36.0 g/dL Red Cell Distribution Width 12.4 11.8-14.3 % Platelet Count 263 140-450 10^3/uL Mean Platelet Volume 7.3 6.9-10.8 fL Neutrophils (%) (Auto) 83.1 H 37.0-80.0 % Lymphocytes (%) (Auto) 12.8 10.0-50.0 % Monocytes (%) (Auto) 3.6 0.0-12.0 % Eosinophils (%) (Auto) 0.3 0.0-7.0 % Basophils (%) (Auto) 0.2 0.0-2.0 % Neutrophils # (Auto) 12.8 H 1.6-8.6 10 ^3/uL Lymphocytes # (Auto) 2.0 0.4-5.4 10 ^3/uL Monocytes # (Auto) 0.6 0-1.3 10 ^3/uL Eosinophils # (Auto) 0 0-0.8 10 ^3/uL Basophils # (Auto) 0 0-0.2 10 ^3/uL Nucleated Red Blood Cells 0.0 % Sodium Level 129 L 136-145 mmol/L Potassium Level 3.4 L 3.5-5.1 mmol/L Chloride Level 94 L 98-107 mmol/L Carbon Dioxide Level 23 20-31 mmol/L Anion Gap 12 5-15 Blood Urea Nitrogen < 5 L 9-23 mg/dL Creatinine 0.67 0.550-1.02 mg/dL Glomerular Filtration Rate Calc 98 >90 mL/min BUN/Creatinine Ratio 7.5 L 10.0-20.0 Serum Glucose 104 74-106 mg/dL Lactic Acid Level 1.6 0.4-2.0 mmol/L Calcium Level 8.9 8.7-10.4 mg/dL Total Bilirubin 0.4 0.2-1.0 mg/dL Aspartate Amino Transferase (AST) 35 13-40 U/L Alanine Aminotransferase (ALT) 36 7-40 U/L Alkaline Phosphatase 56 46-116 U/L Total Protein 6.7 5.7-8.2 g/dL Albumin 4.4 3.2-4.8 g/dL Lipase 64 H 12-53 U/L POC Glucose 113 H 70-106 mg/dl Imaging: CT abdomen pelvis Impression: 1. Findings as above raising the possibility of an enteritis in the appropriate clinical setting. Assessment: Gastroenteritis Abdominal pain Nausea and vomiting Plan: Discussed with Dr. Tanner - Pt will be scheduled for an EGD tomorrow 01/23/2025. Pt was informed of the risks (bleeding, infection, perforation, reaction to sedation medications and cardiopulmonary arrest) and benefit and is agreeable to undergo the procedures. At this time patient does not want to do any procedures. And would like to be discharged home since she is feeling better Clear liquid diet advance as tolerated Zofran and Protonix Continue antibiotic Outpatient GI follow-up recommended in 2-4 weeks Recall GI consult if patient's symptoms worsen Discussed plan with patient and RN and family at bedside Thank you for this consult Date of Service: Jan 22, 2025 Billing Provider: AVEL JENKINS Common Visit Codes: CONSULT ONLY Consultation Codes: [id number] CONSULT <60MIN AVEL JENKINS Jan 22, 2025 13:40
[2025-01-22] MEDS ORDERED: LACTATED RINGER'S 1,000 ML IV SCH (14:45)
[2025-01-22] MEDS ORDERED: PANT40TA2 PO (15:19)
[2025-01-22] MEDS ORDERED: CIPR500T4 PO (15:19)
[2025-01-22] MEDS ORDERED: MAA30LQ PO (15:19)
--- NOTE | 2025-01-22 15:22 | DVHDS2 ---
Discharge Summary Date of Admission Jan 22, 2025 at 01:12 Date of Discharge: Jan 22, 2025 Labs/Diagnostic Data: Laboratory Results Test 01/22/25 02:23 01/22/25 01:34 01/21/25 22:53 01/21/25 22:15 Urine Color Light-yellow (Yellow) Urine Clarity Turbid (Clear) Urine pH 6.0 (5.0-9.0) Urine Specific [place] 1.022 (1.001-1.035) Urine Protein Negative (Negative) Urine Ketones 1+ (Negative) Urine Blood Negative /uL (Negative) Urine Nitrite Negative (Negative) Urine Bilirubin Negative (Negative) Urine Urobilinogen Normal mg/dL (Negative) Urine Leukocyte Esterase Negative /uL (Negative) Urine RBC None seen /hpf (0 - 4) Urine Microscopic WBC 1 /HPF (0-5) Urine Squamous Epithelial Cells None seen /hpf (<5) Urine Calcium Oxalate Crystals Many (None Seen) Urine Bacteria None seen /hpf (None Seen) Urine Mucus Few (None Seen) Urine Glucose Normal mg/dL (Normal) Troponin I High Sensitivity < 3 ng/L (</=34) White Blood Count 15.4 10^3/uL (4.4-10.8) Red Blood Count 4.46 10^6/uL (4.0-5.20) Hemoglobin 14.3 g/dL (12.2-16.2) Hematocrit 41.6 % (36.0-46.0) Mean Corpuscular Volume 93.3 fL (80.0-100.0) Mean Corpuscular Hemoglobin 32.0 pg (28.0-32.0) Mean Corpuscular Hemoglobin Concent 34.3 g/dL (32.0-36.0) Red Cell Distribution Width 12.4 % (11.8-14.3) Platelet Count 263 10^3/uL (140-450) Mean Platelet Volume 7.3 fL (6.9-10.8) Neutrophils (%) (Auto) 83.1 % (37.0-80.0) Lymphocytes (%) (Auto) 12.8 % (10.0-50.0) Monocytes (%) (Auto) 3.6 % (0.0-12.0) Eosinophils (%) (Auto) 0.3 % (0.0-7.0) Basophils (%) (Auto) 0.2 % (0.0-2.0) Neutrophils # (Auto) 12.8 10 ^3/uL (1.6-8.6) Lymphocytes # (Auto) 2.0 10 ^3/uL (0.4-5.4) Monocytes # (Auto) 0.6 10 ^3/uL (0-1.3) Eosinophils # (Auto) 0 10 ^3/uL (0-0.8) Basophils # (Auto) 0 10 ^3/uL (0-0.2) Nucleated Red Blood Cells 0.0 % Sodium Level 129 mmol/L (136-145) Potassium Level 3.4 mmol/L (3.5-5.1) Chloride Level 94 mmol/L (98-107) Carbon Dioxide Level 23 mmol/L (20-31) Anion Gap 12 (5-15) Blood Urea Nitrogen < 5 mg/dL (9-23) Creatinine 0.67 mg/dL (0.550-1.02) Glomerular Filtration Rate Calc 98 mL/min (>90) BUN/Creatinine Ratio 7.5 (10.0-20.0) Serum Glucose 104 mg/dL (74-106) Lactic Acid Level 1.6 mmol/L (0.4-2.0) Calcium Level 8.9 mg/dL (8.7-10.4) Total Bilirubin 0.4 mg/dL (0.2-1.0) Aspartate Amino Transferase (AST) 35 U/L (13-40) Alanine Aminotransferase (ALT) 36 U/L (7-40) Alkaline Phosphatase 56 U/L (46-116) Total Protein 6.7 g/dL (5.7-8.2) Albumin 4.4 g/dL (3.2-4.8) Lipase 64 U/L (12-53) POC Glucose 113 mg/dl (70-106) Other Laboratory Tests 01/21/25 22:53 Brief Hx & Hospital Course: 64 F presented with vomiting and abdominal pain, not first episode. no allergy confirmed (cipro w/o reaction however was given flagyl and has some uncomfortable reaction before, no anaphylaxis, rash). seen by GI. ct with enteritis. abdomen soft. oferred scope, aptient defer. f/u w gi outpatinet. dc with protonix cipro and maalox. feeling better. stable to dc home Condition at Discharge: Good Final Diagnosis/Problems List dyspepsia w vomiting Discharge Disposition: Home Discharge Instruct/Medications Diet: See Comment Diet comment: small frequent feeding, avoid spicy foods, avoid caffeine, avoid alcohol Activity: No Restrictions, As Tolerated Follow Up/Referral: GI PCP nd clinic Medications: cipro (no allergy per pt) maalox protonix Scheduled Ciprofloxacin Hcl (Ciprofloxacin Hcl), 1 TAB PO BID Metronidazole (Flagyl), 1 TAB PO TID Ondansetron Odt 4MG Tab (Zofran Po), 4 MG PO BS Pantoprazole Sodium Sesquihydr (Protonix), 40 MG PO BID Scheduled PRN Alum & Mag Hydrox-Simethicone (Maalox Plus), 30 ML PO Q6HP PRN Discharge Statement: "Patient was advised to return to the ER or call 911 if any headaches, dizziness, shortness of breath, chest pain, abdominal pain, bleeding, fevers, or worsening of medical condition. Patient was counseled about treatment plan, medications, possible side effects, patientverbalized understanding. All questions were answered to the best of my ability. This discharge took greater then 30 minutes in planning, reviewing documentation, counseling the patient, and discussing with other team members." ASSESSMENT ASSESSMENT Assessment dyspepsia w vomiting Date of Service: Jan 22, 2025 Billing Provider: NALINI ARRINGTON MD Common Visit Codes: [id number] DISCH DAY >30min NALINI ARRINGTON MD Jan 22, 2025 15:22
[2025-01-22 16:00] VITALS: BP 150/77; PULSE 92; RESP 18; TEMP 97; O2SAT 97
[2025-01-22] MEDS: cefTRIAXone 1GM/50ML D5W 50 ML IV ONE (17:00)
[2025-01-23] MEDS ORDERED: cefTRIAXone 1GM/50ML D5W 50 ML IV SCH (09:00)
== END 2025-01-22 17:15 | disposition home or self-care (01) | DRG 392 ==
LOC: ER 22:02 → OVERFLOW 01-22 01:12
PROVIDERS: ADMIT Student in an Organized Health Care Education/Training Program; ATTEND Student in an Organized Health Care Education/Training Program
DX: K52.9 Noninfective gastroenteritis and colitis, unspecified (principal); E87.6 Hypokalemia
CPT/HCPCS: 36415; 74177; 80053; 81001; 82962; 83605; 83690; 84484; 85025; 93005; 96361; 96374; G0378; J2405; J2470; J3490